=== PATIENT | male | born 1985 | race Caucasian/White ===

== ENCOUNTER 2025-05-10 08:17 | Emergency (ER) | payer OTHER, SELFPAY ==
[2025-05-10 08:24] VITALS: BP 165/98; PULSE 83; RESP 16; TEMP 36.8; O2SAT 100
--- NOTE | 2025-05-10 08:43 | ED.GENADULT ---
HPI - General Adult General Chief complaint: Unspecified Stated complaint: Hemorroid Time Seen by Provider: 05/10/25 08:29 Source: patient and RN notes reviewed Mode of arrival: ambulatory Limitations: no limitations History of Present Illness HPI narrative: Patient presents today complaining of painful hemorrhoids x4 days that have been worsening x3 days. Yesterday he started Sitz baths and witch mandy, which has not been helpful. States he has had hemorrhoids in the past, but not this severe. States he does not eat fiber in his diet, mostly meat and fats. Admits to sitting on the toilet for long periods of time scrolling on his phone, but denies constipation, hard stools, or need to strain with passing stools. Denies heavy lifting at home or work. Related Data Allergies Allergy/AdvReac Type Severity Reaction Status Date / Time No Known Allergies Allergy Verified 05/10/25 08:28 [facility] Past Medical History Medical History Seasonal allergic rhinitis GERD (gastroesophageal reflux disease) Surgical History Surgical History History of oral surgery Family History Family History Mother Hypertension Social History Social History Social History: Single Smoking status: Never smoker Second hand tobacco smoke exposure: No Alcohol intake: current Drinks per week: 6 Substance use: current Substance use type: marijuana Living arrangements: alone Occupation/Education: occupation Gender identity (if verbalized by the patient): Male Sexual Orientation (if Verbalized by the Patient): Straight or Heterosexual Comments At time of signature, I have reviewed and agree with nursing past medical, surgical, social and family history unless otherwise noted. Please see nursing chart for further information. There is no relevant family history pertinent to the presenting complaint Exam Narrative: GENERAL: Well-appearing, well-nourished, and in no acute distress. HEAD: Normocephalic, atraumatic. EYES: EOMI. No redness or drainage. Conjunctivae normal. ENT: Mucous membranes pink and moist. NECK: Normal AROM. CHEST: No respiratory distress. : 1 large thrombosed external hemorrhoid, firm. 1 moderately sized external hemorrhoid. Scant bleeding. TTP. EXTREMITIES: Normal range of motion. No edema. SKIN: Warm, dry, no rash. Capillary refill normal. Normal skin turgor. NEURO: No focal deficits. Alert and oriented x3. Gait steady. PSYCH: Normal affect. No signs of depression or anxiety. Course Course Level of Care: Express Care Visit Vital Signs Vital signs: Vital Signs Temperature 98.3 F 05/10/25 08:24 Pulse Rate 83 05/10/25 08:24 Respiratory Rate 16 05/10/25 08:24 Blood Pressure 165/98 H 05/10/25 08:24 Pulse Oximetry 100 05/10/25 08:24 Oxygen Delivery Room Air 05/10/25 08:24 Temperature 98.3 F 05/10/25 08:24 Pulse Rate 83 05/10/25 08:24 Respiratory Rate 16 05/10/25 08:24 Blood Pressure 165/98 H 05/10/25 08:24 Pulse Oximetry 100 05/10/25 08:24 Oxygen Delivery Room Air 05/10/25 08:24 Reviewed MDM MDM Narrative Medical decision making narrative: Patient presents today complaining of painful hemorrhoids x4 days that have been worsening x3 days. Yesterday he started Sitz baths and witch mandy, which has not been helpful. States he has had hemorrhoids in the past, but not this severe. States he does not eat fiber in his diet, mostly meat and fats. Admits to sitting on the toilet for long periods of time scrolling on his phone, but denies constipation, hard stools, or need to strain with passing stools. Denies heavy lifting at home or work. Upon exam, patient has 1 large thrombosed and 1 moderatly sized hemorrhoid. Discussed with patient that he needs to see GI to get these taken care of, given size. Will prescribe some Anusol to see if this will provide some relief of discomfort. Patient agrees with plan. Vital signs stable. Anticipatory guidance given. Differential Diagnosis Differential Diagnosis: External hemorrhoid, internal hemorrhoid, thrombosed hemorrhoid Critical Care Time Critical Care Time Critical Care Time: No Discharge Plan Discharge Clinical Impression: External thrombosed hemorrhoids Patient Disposition: Home Condition: Stable Instructions: Hemorrhoids (DC) Additional Instructions: You can try the topical Anusol to see if this provides some relief. It is recommended that you call and schedule a visit with field laborer to have your hemorrhoids taking care of. Contact information has been provided for you. If you would like to find a primary care provider, please call the physician liaison number at [facility] at [phone]. Patient Language: German Prescriptions: New hydrocortisone [Anusol-HC] 2.5 % cream with perineal applicator 1 applic RECTAL DAILY PRN (Reason: hemorrhoids) Qty: 30 0RF Follow-up/Referrals: PHYSICIAN,CONSTRUCTION SITE MANAGER [Primary Care Provider, Internal Medicine] Kannan Davila MD [Physician, Gastroenterology] Time of Disposition: 08:46
== END 2025-05-10 08:50 | disposition home or self-care (01) ==
PROVIDERS: Emergency Provider Nurse Practitioner
DX: K64.5 Perianal venous thrombosis (principal); K21.9 Gastro-esophageal reflux disease without esophagitis
CPT/HCPCS: 99213; G0463